=== PATIENT | female | born 1945 | race Caucasian/White ===

== ENCOUNTER 2017-09-25 10:18 | Emergency (ER) | END 2017-09-25 14:29 | disposition home or self-care (01) | DX: R10.9 Unspecified abdominal pain (principal); K21.9 Gastro-esophageal reflux disease without esophagitis; K44.9 Diaphragmatic hernia without obstruction or gangrene | CPT/HCPCS: 71045; 74018; 74177; 80053; 83690; 85025; 96374; 99284; C9113; Q9967 ==

== ENCOUNTER 2017-09-26 22:30 | Emergency (ER) | payer OTHER ==
[~2017-09-26 22:30] MED LIST: CITA20TA4 PO; DICY10 PO; GABA300C5 PO; LEVO25TA4 PO; LISI10TA3 PO; METF1000 PO; OMEP20TA93 PO; PANT40TA3 PO; ZOFR4TAB3 SL
[2017-09-26 22:33] VITALS: BP 133/61; PULSE 83; RESP 16; TEMP 98.3; O2SAT 98
[2017-09-26] MEDS ORDERED: SODIUM CHLORID 0.9% 500 ML INJ 500 ML IV ONE (22:45)
[2017-09-26] MEDS ORDERED: SODIUM CHLORIDE 0.9% FLUSH 10 ML FLUSH IV FLUSH PRN (22:45)
[2017-09-26] MEDS ORDERED: ONDANSETRON ODT 4 MG TAB PO ONE (22:45)
[2017-09-26] MEDS ORDERED: MORPHINE SULFATE 4 MG/ML INJ IV PUSH ONE (22:45)
[2017-09-26] MEDS ORDERED: DICYCLOMINE HCL 20 MG/2 ML VIAL IM ONE (22:45)
--- NOTE | 2017-09-26 22:47 | PD ---
HPI Chief Complaint: Abdominal Pain Time Seen by Provider: 22:35 Travel History International Travel<30 days: No Contact w/Intl Traveler<30days: No Traveled to known affect area: No History of Present Illness HPI The patient is a 72-year-old female who presents to the emergency department for abdominal pain. The patient states the abdominal pain started yesterday, is generalized, and is now associated with diarrhea. The patient was seen in the emergency department yesterday for the abdominal pain, however, she had no diarrhea at that time. The patient had laboratory evaluation and a CT the abdomen and pelvis which was negative. The patient was discharged home, however, states she continues to have intermittent diffuse abdominal pain, crampy, located in the lower quadrants, and associated with diarrhea. The patient describes the diarrhea as loose, watery, without any visible blood. Symptoms are moderate. She denies any fever. The patient's family member states they made an appointment to see their physician on the sixth of next month for possible outpatient follow-up with gastroenterology. The patient does have a history of cirrhosis, possibly secondary to diabetes. She denies any alcohol use. PFSH Past Medical History Diabetes: Yes Patient Takes Glucophage: No Diminished Hearing: No Hiatal Hernia: Yes Hypertension: Yes Neurologic: Yes (DB NEUROPATHY ) Immunizations Current: Yes Thyroid Disease: Yes Menopausal: Yes Past Surgical History Surgical History: No Previous Surgery Social History Alcohol Use: No Tobacco Use: No Substance Use: No Allergies-Medications (Allergen,Severity, Reaction): Coded Allergies: No Known Allergies (Unverified , 09/26/17) Reported Meds & Prescriptions Reported Meds & Active Scripts Active Bentyl (Dicyclomine HCl) 10 Mg Cap 10 Mg PO TID PRN Zofran Odt (Ondansetron Odt) 4 Mg Tab 4 Mg SL Q6HR PRN Reported Levothyroxine (Levothyroxine Sodium) 25 Mcg Tab 25 Mcg PO DAILY Metformin (Metformin HCl) 1,000 Mg Tab 1,000 Mg PO BIDPC Lisinopril 10 Mg Tab 10 Mg PO DAILY Citalopram (Citalopram Hydrobromide) 20 Mg Tab 20 Mg PO DAILY Gabapentin 300 Mg Cap 300 Mg PO DAILY Pantoprazole (Pantoprazole Sodium) 40 Mg Tab 40 Mg PO DAILY Omeprazole 20 Mg Tab 20 Mg PO DAILY Review of Systems Except as stated in HPI: all other systems reviewed are Neg General / Constitutional: No: Fever Cardiovascular: No: Chest Pain or Discomfort Respiratory: No: Shortness of Breath Gastrointestinal: Positive: Nausea, Diarrhea, Abdominal Pain, No: Vomiting Genitourinary: No: Dysuria Musculoskeletal: No: Weakness Neurologic: No: Weakness Physical Exam Narrative GENERAL: Awake, alert, pleasant 72-year-old female who appears her stated age and is in no acute respiratory distress. SKIN: Focused skin assessment warm/dry. HEAD: Atraumatic. Normocephalic. EYES: Pupils equal and round. No scleral icterus. No injection or drainage. ENT: No nasal bleeding or discharge. Mucous membranes pink and moist. NECK: Trachea midline. No JVD. CARDIOVASCULAR: Regular rate and rhythm. No murmur appreciated. RESPIRATORY: No accessory muscle use. Clear to auscultation. Breath sounds equal bilaterally. GASTROINTESTINAL: Abdomen soft, diffuse tenderness but no guarding or rigidity. No tympany noted. MUSCULOSKELETAL: No obvious deformities. No clubbing. No cyanosis. No edema. NEUROLOGICAL: Awake and alert. No obvious cranial nerve deficits. Motor grossly within normal limits. Normal speech. PSYCHIATRIC: Appropriate mood and affect; insight and judgment normal. Data Data Last Documented VS Vital Signs Date Time Temp Pulse Resp B/P (MAP) Pulse Ox O2 Delivery O2 Flow Rate FiO2 09/26/17 22:33 98.3 83 16 133/61 (85) 98 Room Air Orders Orders Complete Blood Count With Diff (09/26/17 22:42) Comprehensive Metabolic Panel (09/26/17 22:42) Lipase (09/26/17 22:42) Lactic Acid (09/26/17 22:42) Iv Access Insert/Monitor (09/26/17 22:42) Ecg Monitoring (09/26/17 22:42) Oximetry (09/26/17 22:42) Morphine Inj (Morphine Inj) (09/26/17 22:45) Sodium Chloride 0.9% Flush (Ns Flush) (09/26/17 22:45) Dicyclomine Inj (Bentyl Inj) (09/26/17 22:45) Ondansetron Odt (Zofran Odt) (09/26/17 22:45) Sodium Chlorid 0.9% 500 Ml Inj (Ns 500 M (09/26/17 22:45) Labs Laboratory Tests Test 09/26/17 22:50 White Blood Count 7.0 TH/MM3 Red Blood Count 4.37 MIL/MM3 Hemoglobin 12.9 GM/DL Hematocrit 38.2 % Mean Corpuscular Volume 87.5 FL Mean Corpuscular Hemoglobin 29.5 PG Mean Corpuscular Hemoglobin Concent 33.8 % Red Cell Distribution Width 14.3 % Platelet Count 140 TH/MM3 Mean Platelet Volume 9.2 FL Neutrophils (%) (Auto) 63.7 % Lymphocytes (%) (Auto) 22.6 % Monocytes (%) (Auto) 12.2 % Eosinophils (%) (Auto) 1.4 % Basophils (%) (Auto) 0.1 % Neutrophils # (Auto) 4.5 TH/MM3 Lymphocytes # (Auto) 1.6 TH/MM3 Monocytes # (Auto) 0.9 TH/MM3 Eosinophils # (Auto) 0.1 TH/MM3 Basophils # (Auto) 0.0 TH/MM3 CBC Comment DIFF FINAL Differential Comment Blood Urea Nitrogen 11 MG/DL Creatinine 1.00 MG/DL Random Glucose 194 MG/DL Total Protein 7.8 GM/DL Albumin 3.3 GM/DL Calcium Level 8.8 MG/DL Alkaline Phosphatase 121 U/L Aspartate Amino Transf (AST/SGOT) 28 U/L Alanine Aminotransferase (ALT/SGPT) 25 U/L Total Bilirubin 0.8 MG/DL Sodium Level 134 MEQ/L Potassium Level 3.8 MEQ/L Chloride Level 101 MEQ/L Carbon Dioxide Level 22.8 MEQ/L Anion Gap 10 MEQ/L Estimat Glomerular Filtration Rate 55 ML/MIN Lactic Acid Level 2.1 mmol/L Lipase 428 U/L MDM Medical Decision Making Medical Screen Exam Complete: Yes Emergency Medical Condition: Yes Medical Record Reviewed: Yes Interpretation(s) Laboratory Tests Test 09/26/17 22:50 White Blood Count 7.0 TH/MM3 Red Blood Count 4.37 MIL/MM3 Hemoglobin 12.9 GM/DL Hematocrit 38.2 % Mean Corpuscular Volume 87.5 FL Mean Corpuscular Hemoglobin 29.5 PG Mean Corpuscular Hemoglobin Concent 33.8 % Red Cell Distribution Width 14.3 % Platelet Count 140 TH/MM3 Mean Platelet Volume 9.2 FL Neutrophils (%) (Auto) 63.7 % Lymphocytes (%) (Auto) 22.6 % Monocytes (%) (Auto) 12.2 % Eosinophils (%) (Auto) 1.4 % Basophils (%) (Auto) 0.1 % Neutrophils # (Auto) 4.5 TH/MM3 Lymphocytes # (Auto) 1.6 TH/MM3 Monocytes # (Auto) 0.9 TH/MM3 Eosinophils # (Auto) 0.1 TH/MM3 Basophils # (Auto) 0.0 TH/MM3 CBC Comment DIFF FINAL Differential Comment Blood Urea Nitrogen 11 MG/DL Creatinine 1.00 MG/DL Random Glucose 194 MG/DL Total Protein 7.8 GM/DL Albumin 3.3 GM/DL Calcium Level 8.8 MG/DL Alkaline Phosphatase 121 U/L Aspartate Amino Transf (AST/SGOT) 28 U/L Alanine Aminotransferase (ALT/SGPT) 25 U/L Total Bilirubin 0.8 MG/DL Sodium Level 134 MEQ/L Potassium Level 3.8 MEQ/L Chloride Level 101 MEQ/L Carbon Dioxide Level 22.8 MEQ/L Anion Gap 10 MEQ/L Estimat Glomerular Filtration Rate 55 ML/MIN Lactic Acid Level 2.1 mmol/L Lipase 428 U/L Differential Diagnosis Differential diagnosis includes gastroenteritis, enteritis, colitis, viral infection, infectious diarrhea, partial small bowel obstruction, pancreatitis, dehydration. Narrative Course IV was established, labs are drawn and sent, and the patient was placed on cardiac telemetry monitoring and continuous pulse oximetry monitoring. I reviewed the patient's EMR, she was seen on September 25, 2017 where she had a CT of the abdomen and pelvis performed which revealed cirrhosis and a trace amount of free fluid in the pelvis, laboratory evaluation at that time was unremarkable. Therefore, repeat CBC and lactic acid were sent to lab. 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 The patient's white count is normal. Lactic acid is mildly elevated at 2.1. Lipase is slightly elevated greater than 420, lipase yesterday was normal. The patient was reevaluated at 11:30 PM. The patient's symptoms have significantly improved. Abdominal exam is benign, there is no guarding or rigidity. The patient is afebrile and has a normal white count. Monocytes are elevated, may be a viral enteritis/colitis. She is advised to follow-up with her primary physician. Return if symptoms worsen or progress. Diagnosis Primary Impression: Abdominal pain Qualified Codes: R10.84 - Generalized abdominal pain Additional Impression: Diarrhea Qualified Codes: R19.7 - Diarrhea, unspecified Patient Instructions: General Instructions Additional Instructions: Please provide the patient a copy of her labs at discharge. Plenty of fluids to stay hydrated. Clear liquid diet and advance as tolerated. Follow-up with your primary physician. Return for fever or intractable pain. Med/Other Pt SpecificInfo: No Change to Meds Disposition: 01 DISCHARGE HOME Condition: Stable Eben Sidhu MD September 26, 2017 22:47
[2017-09-26 23:16] LABS: AUTOMATED NEUTROPHIL # 4.5 TH/MM3 (1.8-7.7); BASOPHIL % 0.1 % (0.0-2.0); EOSINOPHIL # 0.1 TH/MM3 (0-0.4); EOSINOPHIL % 1.4 % (0.0-4.0); HEMATOCRIT 38.2 % (35.0-46.0); HEMOGLOBIN 12.9 GM/DL (11.6-15.3); LYMPH % 22.6 % (9.0-44.0); LYMPHOCYTE # 1.6 TH/MM3 (1.0-4.8); MEAN CELL VOLUME 87.5 FL (80.0-100.0); MEAN CORPUSCULAR HEMOGLOBIN 29.5 PG (27.0-34.0); MEAN CORPUSCULAR HGB CONC 33.8 % (32.0-36.0); MEAN PLATELET VOLUME 9.2 FL (7.0-11.0); MONO % 12.2 % (0.0-8.0); MONOCYTE # 0.9 TH/MM3 (0-0.9); NEUT % 63.7 % (16.0-70.0); PLATELET COUNT 140 TH/MM3 (150-450); RED BLOOD COUNT 4.37 MIL/MM3 (4.00-5.30); RED CELL DISTRIBUTION WIDTH 14.3 % (11.6-17.2)
[2017-09-26 23:24] LABS: ALBUMIN 3.3 GM/DL (3.4-5.0); AST (GOT) 28 U/L (15-37); BICARBONATE 22.8 MEQ/L (21.0-32.0); BLOOD UREA NITROGEN 11 MG/DL (7-18); CALCIUM 8.8 MG/DL (8.5-10.1); CHLORIDE 101 MEQ/L (98-107); GLOMERULAR FILTRATION RATE 55 ML/MIN (>89); GLUCOSE,RANDOM 194 MG/DL (74-106); SODIUM (NA) 134 MEQ/L (136-145)
[2017-09-26 23:26] LABS: ALT (GPT) 25 U/L (10-53)
[2017-09-26 23:28] LABS: ALKALINE PHOSPHATASE 121 U/L (45-117); TOTAL BILIRUBIN ADULT 0.8 MG/DL (0.2-1.0); TOTAL PROTEIN 7.8 GM/DL (6.4-8.2)
== END 2017-09-27 00:07 | disposition home or self-care (01) ==
LOC: NEPC 22:30
DX: R10.84 Generalized abdominal pain (principal); R19.7 Diarrhea, unspecified; E11.9 Type 2 diabetes mellitus without complications; K74.60 Unspecified cirrhosis of liver; I10 Essential (primary) hypertension
CPT/HCPCS: 80053; 83605; 83690; 85025; 96361; 96372; 96374; 99284; J0500; J2270; J7040